=== PATIENT | female | born 1970 | race African-American/Black ===

== ENCOUNTER 2023-04-23 12:17 | Emergency (ER) | payer MEDICAID, OTHER ==
[~2023-04-23] VITALS: Ht 167.6 cm; Wt 113.6 kg
[~2023-04-23 12:17] MED LIST: AMLO-258 PO; ATEN-188 PO
[2023-04-23] MEDS ORDERED: KETOROLAC TROMETHAMINE 60 MG/2 ML VIAL IM ONE (13:15)
[2023-04-23] MEDS ORDERED: ACETAMINOPHEN/CODEINE 300-30 MG TABLET PO ONE (13:15)
[2023-04-23 13:36] LABS: APPEARANCE,URINE CLEAR (CLEAR); BILIRUBIN,URINE NEGATIVE (NEGATIVE); GLUCOSE, URINE (UA) NEGATIVE (NEGATIVE); KETONES,URINE NEGATIVE (NEGATIVE); LEUKOCYTE ESTERASE ,URINE LARGE (NEGATIVE); NITRATE,URINE NEGATIVE (NEGATIVE); OCCULT BLOOD,URINE NEGATIVE (NEGATIVE); PH,URINE 5.5 (5.0-8.0); PROTEIN,URINE TRACE mg/dL (NEGATIVE); SPECIFIC GRAVITIY, URINE 1.019 (1.003-1.030); UROBILINOGEN,URINE <=1.0 mg/dL (<=1.0)
[2023-04-23 13:43] LABS: BASOPHILS % (AUTO) 0.5 % (0.0-2.0); EOSINOPHILS % (AUTO) 4.3 % (1.0-6.0); HEMATOCRIT 40.5 % (36-46); HEMOGLOBIN 13.1 g/dL (12.0-16.0); LYMPHOCYTES # (AUTO) 1.2 K/uL (1.0-4.8); LYMPHOCYTES % (AUTO) 31.4 % (22.0-44.0); MEAN CORPUSCULAR HEMOGLOBIN 28.7 pg (26.0-34.0); MEAN CORPUSCULAR HGB CONC 32.3 G/dL (31.0-37.0); MEAN CORPUSCULAR VOLUME 89 fL (80-100); MONOCYTES # (AUTO) 0.5 K/uL (0.1-1.0); MONOCYTES % (AUTO) 12.2 % (2.0-9.0); NEUTROPHILS % (AUTO) 51.6 % (40.0-70.0); PLATELET COUNT (AUTO) 318 K/uL (150-450); RED BLOOD CELL COUNT(AUTO) 4.56 MIL/uL (4.00-5.20)
[2023-04-23 13:51] LABS: BACTERIA,URINE Few /HPF (None Seen); RBC,URINE None Seen /HPF (0-2); SQUAMOUS EPITHELIAL CELL,UR Few /LPF (None Seen)
[2023-04-23 14:00] LABS: ALBUMIN 3.6 g/dL (3.4-5.0); BILIRUBIN,TOTAL 0.2 mg/dL (0.1-1.0); CALCIUM, TOTAL 9.2 mg/dL (8.8-10.5); CREATININE 1.36 mg/dL (0.60-1.30); TOTAL PROTEIN, SERUM 8.2 g/dL (6.4-8.2)
[2023-04-23] MEDS ORDERED: DEXTROSE 50%-WATER 25 GM/50 ML SYRINGE IVP ONE (14:15)
[2023-04-23 14:26] LABS: GLUCOMETER DEV NAME(LOC) ER.6
[2023-04-23 15:06] LABS: GLUCOMETER DEV NAME(LOC) ERT.5
[2023-04-23 15:46] LABS: GLUCOMETER DEV NAME(LOC) ER.6
[2023-04-23 16:26] LABS: GLUCOMETER DEV NAME(LOC) ERT.5
[2023-04-23 18:21] LABS: GLUCOMETER DEV NAME(LOC) ERT.5
[2023-04-23 18:21] LABS: GLUCOMETER DEV NAME(LOC) ERT.5
[2023-04-23 21:16] VITALS: BP 141/73; PULSE 75; RESP 16; TEMP 98.3
[2023-04-24] MEDS ORDERED: PHEN-674 PO (02:50)
[2023-04-24] MEDS ORDERED: IBUP-1492 PO (02:50)
[2023-04-24 03:01] LABS: GLUCOMETER DEV NAME(LOC) ERT.5
[2023-04-24 03:01] LABS: GLUCOMETER DEV NAME(LOC) ERT.5
== END 2023-04-23 21:16 | disposition home or self-care (01) ==
LOC: EMS 13:09
DX: N39.0 Urinary tract infection, site not specified (principal); F41.9 Anxiety disorder, unspecified; M19.90 Unspecified osteoarthritis, unspecified site; I10 Essential (primary) hypertension; Z90.49 Acquired absence of other specified parts of digestive tract; Z98.890 Other specified postprocedural states
CPT/HCPCS: 99284; 96374; 80053; 81001; 83690; 84484; 85025; 36415; 87086; 87186; 96372; 82962; J1885; 96365

== ENCOUNTER 2023-04-24 01:33 | Emergency (ER) | payer OTHER ==
[~2023-04-24] VITALS: Ht 167.6 cm; Wt 100.0 kg
[2023-04-24] MEDS ORDERED: PHEN-674 PO (02:50)
[2023-04-24] MEDS ORDERED: IBUP-1492 PO (02:50)
[2023-04-24] MEDS ORDERED: IBUPROFEN 600 MG TABLET PO ONE (03:00)
[2023-04-24] MEDS ORDERED: PHENAZOPYRIDINE HCL 100 MG TABLET PO ONE (03:00)
[2023-04-24 03:30] VITALS: BP 137/71; PULSE 78; RESP 20; TEMP 97.3
== END 2023-04-24 04:41 | disposition home or self-care (01) ==
LOC: EMS 01:33
DX: N39.0 Urinary tract infection, site not specified (principal); F41.9 Anxiety disorder, unspecified; M19.90 Unspecified osteoarthritis, unspecified site; I10 Essential (primary) hypertension; Z90.49 Acquired absence of other specified parts of digestive tract; Z98.890 Other specified postprocedural states
CPT/HCPCS: 82962; 99283